=== PATIENT | female | born 1985 | race Two or more races ===

== ENCOUNTER 2019-07-15 20:15 | Emergency (ER) | payer BC, MEDICAID ==
--- NOTE | 2019-07-15 21:01 | ED ---
HPI Febrile Illness - HPI Summary HPI Summary: This patient is a 33 year old F presenting to [facility] accompanied by and son with a chief complaint of fever and sore throat since 07/14/19. Patient states that she had taken her temperature and it was 38.3 C. The patient rates the pain 6/10 in severity. Symptoms aggravated by nothing. Symptoms alleviated by nothing. Patient reports sore throat, fever, CASTANEDA. Patient denies coughing and seasonal allergies. Patient denies SHx and PMHx. PAtient denies EtOH use, substance abuse and tobacco use. 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 Electrical Engineer - Onset/Duration: Started Days Ago - 07/14/19 Time of Onset: 00:00 Timing: Constant Temperature: 100.9 F Current Severity: Severe Pain Intensity: 8 Pain Scale Used: 0-10 Numeric Aggravating Factors: Nothing Alleviating Factors: Nothing Associated Signs and Symptoms: Chills, Headache, Sore Throat - Allergy/Home Medications Allergies/Adverse Reactions: Allergies Allergy/AdvReac Type Severity Reaction Status Date / Time Sulfa (Sulfonamide Allergy Unknown Verified 07/15/19 20:26 Antibiotics) Reaction Details PMH/Surg Hx/FS Hx/Imm Hx Endocrine/Hematology History: Denies: Hx Diabetes Cardiovascular History: Denies: Hx Hypertension Sensory History: Denies: Hx Legally Blind, Hx Deafness Opthamlomology History: Denies: Hx Legally Blind EENT History: Denies: Hx Deafness - Surgical History Surgical History: None Infectious Disease History: No Infectious Disease History: Reports: Traveled Outside the [place] in Last 30 Days - [facility] - Family History Known Family History: Negative: Cardiac Disease, Hypertension - Social History Alcohol Use: None Hx Substance Use: No Hx Tobacco Use: No Smoking Status (MU): Never Smoked Tobacco Review of Systems Positive: Fever, Chills Positive: Sore Throat Negative: Cough Positive: Headache All Other Systems Reviewed And Are Negative: Yes Physical Exam - Summary Physical Exam Summary: Constitutional: Well-developed, Well-nourished, Alert. (-) Distressed Skin: Warm, Dry HENT: Normocephalic; Atraumatic, no trismus, no pharyngeal exudate, no lymphadenopathy, posterior oropharynx is significantly erythematous Eyes: Conjunctiva normal Neck: Musculoskeletal ROM normal neck. (-) JVD, (-) Stridor, (-) Tracheal deviation Cardio: Rhythm regular, rate normal, Heart sounds normal; Intact distal pulses; The pedal pulses are 2+ and symmetric. Radial pulses are 2+ and symmetric. (-) Murmur Pulmonary/Chest wall: Effort normal. (-) Respiratory distress, (-) Wheezes, (-) Rales Abd: Soft, (-) tenderness, (-) Distension, (-) Guarding, (-) Rebound Musculoskeletal: (-) Edema Lymph: (-) Cervical adenopathy Neuro: Alert, Oriented x3 Psych: Mood and affect Normal Triage Information Reviewed: Yes Vital Signs On Initial Exam: Initial Vitals Temp Pulse Resp BP Pulse Ox 98.2 F 73 16 124/83 100 07/15/19 20:17 07/15/19 20:17 07/15/19 20:17 07/15/19 20:17 07/15/19 20:17 Vital Signs Reviewed: Yes Diagnostics - Vital Signs Vital Signs Temp Pulse Resp BP Pulse Ox 07/15/19 20:17 98.2 F 73 16 124/83 100 - Laboratory Lab Statement: Any lab studies that have been ordered have been reviewed, and results considered in the medical decision making process. Course/Dx - Course Course Of Treatment: This patient is a 33 year old F presenting to [facility] accompanied by and son with a chief complaint of fever and sore throat since 07/14/19. Test results with no significant abnormalities except for Group A Strep Rapid Positive A. In the ED course the patient was given Motrin 400mg and penicillin 500mg. Patient will be discharged and follow up with [facility]. The patient is agreeable with this plan. - Diagnoses Provider Diagnoses: Strep pharyngitis Discharge ED - Sign-Out/Discharge Documenting (check all that apply): Patient Departure - discharge Patient Received Moderate/Deep Sedation with Procedure: No - Discharge Plan Condition: Stable Disposition: HOME Prescriptions: Penicillin VK TAB* [Penicillin VK 250 mg Tab*] 500 mg PO BID #20 tab Patient Education Materials: Pharyngitis (ED) Referrals: [facility] [Outside] - 2 Days Additional Instructions: PLEASE FOLLOW UP WITH [facility] IN TWO TO THREE DAYS. RETURN TO THE EMERGENCY DEPARTMENT FOR CHANGING OR WORSENING SYMPTOMS - Attestation Statements Document Initiated by Scribe: Yes Documenting Scribe: Kandi Gordon Provider For Whom Scribe is Documenting (Include Credential): Dr. Mac Moreno MD Scribe Attestation: Kandi Segovia , scribed for Dr. Mac Moreno MD on 07/15/19 at 2245. Status of Scribe Document: Ready
[2019-07-15] MEDS ORDERED: Ibuprofen TAB* 400 MG PO ONE (21:14)
[2019-07-15 21:26] LABS: Rapid Strep Molecular POSITIVE (Negative)
[2019-07-15] MEDS ORDERED: Penicillin VK TAB* 250 MG PO ONE (21:29)
[2019-07-15 21:39] LABS: Influenza A Molecular NEGATIVE (Negative); Influenza B Molecular NEGATIVE (Negative)
[2019-07-15 21:49] VITALS: BP 0/0
== END 2019-07-15 21:30 | disposition home or self-care (01) ==
LOC: ED 20:15
DX: J02.0 Streptococcal pharyngitis (principal); Z88.2 Allergy status to sulfonamides
CPT/HCPCS: 87651; 99282; A9270-GY